=== PATIENT | male | born 1985 | race Two or more races ===

== ENCOUNTER 2016-03-30 19:49 | Emergency (ER) | payer OTHER ==
[2016-03-30 20:05] VITALS: BP 144/92; PULSE 66; TEMP 97.9; BMI 40.6
--- NOTE | 2016-03-30 21:07 | PDOC ---
History of Present Illness - General Chief Complaint: Lightheaded Stated Complaint: LIGHTHEADED/VOMITING/HEADACHE Time Seen by Provider: 03/30/16 20:30 History Source: Patient Exam Limitations: No Limitations - History of Present Illness Initial Comments: 03/30/16 21:01 30-year-old male, with no significant medical history, here with complaints of dizziness and mild chest pain of sudden onset for the past month. Patient states that symptoms come and go and is relieved when he vomits. No previous episodes. He denies any shortness of breath, no fever, no chills, no dypsnea, no, dysphagia, no headache, no blurry vision, no hemoptysis, no bloody sputum, no LOC. Presenting Symptoms: Dizziness, Nausea, Vomiting Timing/Duration: reports: intermittent Severity/Quality: reports: moderate, severe Location: reports: substernal Chest Pain Radiation: reports: arms Activities at Onset: reports: none, no specific activity Prior Chest Pain/Cardiac Workup: denies: No prior chest pain, No prior cardiac workup, Non-cardiac, Angina, Cardiac Cath, Cardiolye Scan, Echocardiography, Heart Attack, Pulmonary Embolism, Stress Test, Thallium Scan, Other Modifying Factors: worse with: antacids, breathing, coughing, defecating, eating , exercise, lying down, morphine, movement, nitroglycerin, oxygen, palpation, rest, other Nitro Today/Relief: No: no nitro taken today, 0.4 mg x 1, 0.4 mg x 2, 0.4 mg x 3 , 0.4 mg x 4, provided by EMS, provided by ED, provided at home, no relief, mild relief, complete relief Aspirin Received prior to arrival (Core Measure): No: no aspirin today, unknown , 81 mg x 1, 81 mg x 2, 81 mg x 3, 81 mg x 4, 325 mg x 1, provided at home, provided by EMS, provided by ED Beta Denisse given by EMS (Core Measure): No Beta Denisse taken at Home (Core Measure): No Beta Denisse Contraindications (Core Measure): No: Not Prescribed, Allergy, Bradycardia (HR <60bpm), Advanced Heart Block, Pacemaker, Other Beta Denisse indicated at this time? (Core Measure): No Associated Symptoms: No: Denies symptoms, Abdominal pain, Back Pain, Cough, Chest Pain/pressure, Diaphoresis, Dizziness, Edema, Fatigue, Fever/chills, Headache, Heartburn, Loss of Appetite, Nausea, Palpitations, Rash, Shortness of Breath, Swelling/lump in chest, Syncope, Vomiting, Weakness Past History - Past Medical History Allergies/Adverse Reactions: Allergies Allergy/AdvReac Type Severity Reaction Status Date / Time No Known Allergies Allergy Verified 03/30/16 20:01 Home Medications: Ambulatory Orders Levofloxacin [Levaquin -] 500 mg PO DAILY #7 tablet 03/30/16 Meclizine HCl [Antivert -] 25 mg PO DAILY #7 tablet 03/30/16 Other medical history: denies - Psycho/Social/Smoking Cessation Hx Anxiety: No Suicidal Ideation: No Smoking History: Never smoked Number of Cigarettes Smoked Daily: 0 Information on smoking cessation initiated: No Hx Alcohol Use: No Drug/Substance Use Hx: No Substance Use Type: None *Physical Exam - Vital Signs Last Vital Signs Temp Pulse Resp BP Pulse Ox 97.9 F 66 14 144/92 100 03/30/16 20:01 03/30/16 20:01 03/30/16 20:03/30/16 20:03/30/16 20:16 - Physical Exam General Appearance: Yes: Nourished, Appropriately Dressed. No: Apparent Distress, Disheveled, Mild Distress, Moderate Distress, Severe Distress, Alcohol on Breath, Intoxicated HEENT: positive: EOMI, JOSEPHINE, Normal ENT Inspection, Normal Voice, TMs Normal, Pharynx Normal. negative: Pale Conjunctivae, Photophobia, Scleral Icterus (R), Scleral Icterus (L), Muffled/Hoarse voice, Tonsillar Exudate, Tonsillar Erythema , Nasal Congestion, Rhinorrhea, Sinus Tenderness, Orbits, Hearing Decreased, Hearing Grossly Normal, TM Bulging, TM Dull, TM Erythema, Lesions, Moraes, Excessive drooling, Thrush Neck: positive: Trachea midline, Normal Thyroid, Supple. negative: Carotid bruit, Decreased range of motion, Stridor, Lymphadenopathy (R), Lymphadenopathy (L), Rigidity, Tender lateral, Tender midline, Thyromegaly Respiratory/Chest: positive: Lungs Clear, Normal Breath Sounds, Respiratory Distress. negative: Chest Tender, Accessory Muscle Use, Labored Respiration, Rapid RR, Decreased Breath Sounds, Paradoxal Breathing, Crackles, Rales, Rhonchi , Stridor, Wheezing, Hyperresonant, Plerual Rub Cardiovascular: positive: Regular Rhythm, Regular Rate, S1, S2 Musculoskeletal: positive: Normal Inspection, CVA Tenderness. negative: CVA Tenderness (R), CVA Tenderness (L), Decreased Range of Motion, Muscle Spasm, Vertebral Tenderness Extremity: positive: Normal Capillary Refill, Normal Inspection, Normal Range of Motion, Pelvis Stable. negative: Tender Integumentary: positive: Normal Color, Dry, Warm Neurologic: positive: egg candler II-XII NML intact, Fully Oriented, Alert, Normal Mood/ Affect, Normal Response, Motor Strength 08/01 ED Treatment Course - LABORATORY CBC & Chemistry Diagram: 03/30/16 21:00 03/30/16 21:00 - ADDITIONAL ORDERS Additional order review: Laboratory Results 03/30/16 03/30/16 03/30/16 21:18 21:00 21:00 Sodium 139 Potassium 4.5 Chloride 104 Carbon Dioxide 27 Anion Gap 8 BUN 15 Creatinine 0.8 Creat Clearance w eGFR > 60 Random Glucose 95 Calcium 9.4 Total Bilirubin 0.3 AST 22 ALT 69 Alkaline Phosphatase 70 Creatine Kinase 98 Troponin I < 0.02 C-Reactive Protein < 0.3 Total Protein 7.5 Albumin 4.2 Lipase 113 TSH 2.00 Urine Color Ltyellow Urine Appearance Clear Urine pH 7.0 Ur Specific [place] 1.021 Urine Protein Negative Urine Glucose (UA) Negative Urine Ketones Negative Urine Blood Negative Urine Nitrite Negative Urine Bilirubin Negative Urine Urobilinogen Negative Ur Leukocyte Esterase Negative Opiates Screen Negative Methadone Screen Negative Barbiturate Screen Negative Phencyclidine Screen Negative Ur Amphetamines Screen Negative MDMA (Ecstasy) Screen Negative Benzodiazepines Screen Negative Cocaine Screen Negative U Marijuana (THC) Screen Negative 03/30/16 21:00 RBC 6.62 H MCV 74.2 L MCHC 31.7 L RDW 16.2 H MPV 10.0 Neutrophils % 74.6 Lymphocytes % 16.7 Monocytes % 6.1 Eosinophils % 1.9 Basophils % 0.7 - RADIOLOGY Radiology Studies Ordered: Category Date Time Status CHEST PA & LAT [RAD] Stat Radiology 03/30/16 21:06 Taken Progress Note - Progress Note Progress Note: Patient examined here in ER. Patient had labs done and show elevated WBC's, otherwise within acceptable limits. Patient had CXR done which shows early RLL infiltrate suggestive of early PNA. Medical Decision Making - Medical Decision Making 03/30/16 22:47 Patient with possible early PNA and dizziness probably secondary to sinusitis. Patient to be discharged home with oral ABx and follow up with PCP as needed. *DC/Admit/Observation/Transfer Diagnosis at time of Disposition: Dizziness Pneumonia Qualifiers: Pneumonia type: due to unspecified organism Laterality: right Lung location: lower lobe of lung Qualified Code(s): J18.9 - Pneumonia, unspecified organism Sinusitis Qualifiers: Sinusitis location: frontal Chronicity: unspecified Qualified Code(s): J32.1 - Chronic frontal sinusitis - Discharge Dispostion Disposition: HOME Condition at time of disposition: Stable Admit: No - Patient Instructions Printed Discharge Instructions: DI for Sinusitis, DI for Pneumonia -- Adult, DI for Dizziness-Nonvertigo
[2016-03-30 21:25] LABS: BASOPHIL 0.7 % (0-2.0); EOSINOPHIL 1.9 % (0-4.5); MCH 23.5 pg (25.7-33.7); MCHC 31.7 g/dl (32.0-35.9); MEAN CELL VOLUME 74.2 fl (80-96); NEUTROPHILS 74.6 % (42.8-82.8); PLATELET COUNT 197 K/MM3 (134-434); RDW 16.2 % (11.9-15.9); WHITE BLOOD COUNT 12.5 K/mm3 (4.0-10.0)
[2016-03-30 21:26] LABS: URINE APPEARANCE CLEAR; URINE BILIRUBIN NEGATIVE (NEGATIVE); URINE BLOOD NEGATIVE (NEGATIVE); URINE COLOR LTYELLOW; URINE GLUCOSE (UA) NEGATIVE (NEGATIVE); URINE KETONE NEGATIVE (NEGATIVE); URINE LEUK ESTERASE NEGATIVE (NEGATIVE); URINE NITRITE NEGATIVE (NEGATIVE); URINE PROTEIN NEGATIVE (NEGATIVE); URINE UROBILINOGEN NEGATIVE E.U./dl (0.2-1.0)
[2016-03-30 21:42] LABS: URINE MARIJUANA THC NEGATIVE ng/ml (CUTOFF=50)
[2016-03-30 21:51] LABS: ALBUMIN 4.2 g/dl (3.4-5.0); ANION GAP 8 (8-16); BILIRUBIN,TOTAL 0.3 mg/dL (0.2-1.0); CALCIUM 9.4 mg/dL (8.5-10.1); CO2 27 mmol/L (21-32); CREATININE 0.8 mg/dL (0.7-1.3); GLUCOSE,RANDOM 95 mg/dL (74-106); SGOT/AST 22 U/L (15-37); SGPT/ALT 69 U/L (12-78); TOT PROT 7.5 g/dl (6.4-8.2)
[2016-03-30 21:59] LABS: C-REACTIVE PROTEIN < 0.3 MG/DL (0.00-0.3)
[2016-03-30 22:00] LABS: ALK PHOS 70 U/L (45-117); TROPONIN I < 0.02 ng/ml (0.00-0.05)
[2016-03-30] MEDS ORDERED: MECLIZINE HCL 12.5 MG TABLET PO ONE (22:32)
[2016-03-30] MEDS ORDERED: KETOROLAC TROMETHAMINE 60 MG/2 ML VIAL IM ONE (22:41)
[2016-03-30] MEDS ORDERED: LEVOFLOXACIN 500 MG TABLET (FP) PO ONE (22:44)
[2016-03-30] MEDS ORDERED: KETOROLAC TROMETHAMINE 60 MG/2 ML VIAL ONE (22:46)
[2016-03-30] MEDS ORDERED: LEVOFLOXACIN 500 MG TABLET (FP) ONE (22:47)
[2016-03-30] MEDS ORDERED: MECLIZINE HCL 12.5 MG TABLET ONE (22:47)
--- NOTE | 2016-04-02 16:04 | EKG ---
Test Reason : Blood Pressure : / mmHG Vent. Rate : 075 BPM Atrial Rate : 075 BPM P-R Int : 158 ms QRS Dur : 086 ms QT Int : 392 ms P-R-T Axes : 045 019 044 degrees QTc Int : 437 ms NORMAL SINUS RHYTHM NONSPECIFIC ST ABNORMALITY ABNORMAL ECG NO PREVIOUS ECGS AVAILABLE Confirmed by SUBHASH MARI, POOJA ([id number]) on 04/02/2016 4:04:34 PM Referred By: Confirmed By:POOJA CULLEN MD
== END 2016-03-30 22:52 | disposition home or self-care (01) ==
LOC: JER 19:49
PROC: 3E0233Z Introduction of Anti-inflammatory into Muscle, Percutaneous Approach (ICD-10-PCS; principal; 2016-03-30)
DX: J18.9 Pneumonia, unspecified organism (principal); J32.1 Chronic frontal sinusitis
CPT/HCPCS: 36415; 71020-TC; 80053; 81003; 82550; 83690; 84443; 84484; 85025; 86140; 93005; 93010; 96372; 99283-25; G0479

== ENCOUNTER 2017-05-02 22:17 | Inpatient (IN) | payer OTHER ==
--- NOTE | 2017-05-02 23:49 | PDOC ---
History of Present Illness - General History Source: Patient Exam Limitations: No Limitations - History of Present Illness Initial Comments: 05/03/17 01:55 The patient is a 31 year old male with no significant past medical history who presents with one day of bilateral flank pain, discomfort on urination, and vomiting. The patient reports "feeling uncomfortable" with urination, but denies burning or hematuria. He reports experiencing this bilateral flank pain once in January and again in February, however, reportedly took Advil with resolution of the pain each time. The patient states the pain today is worse than the pain associated with the prior experiences. The patient reportedly vomited 2x since being in the ED today. He denies chest pain, shortness of breath, headache and dizziness. He denies fever, chills, nausea, diarrhea and constipation. He denies frequency, urgency and hematuria. <Almita London - Last Filed: 05/03/17 01:55> <Tammi Vidal - Last Filed: 05/03/17 21:39> - General Chief Complaint: Pain, Acute Stated Complaint: PAIN Time Seen by Provider: 05/02/17 23:43 Past History <Almita London - Last Filed: 05/03/17 01:55> - Suicide/Smoking/Psychosocial Hx Smoking History: Never smoked Number of Cigarettes Smoked Daily: 0 Hx Alcohol Use: No Drug/Substance Use Hx: No Substance Use Type: None <Tammi Vidal - Last Filed: 05/03/17 21:39> - Past Medical History Allergies/Adverse Reactions: Allergies Allergy/AdvReac Type Severity Reaction Status Date / Time No Known Allergies Allergy Verified 05/02/17 22:43 Home Medications: Ambulatory Orders NK [No Known Home Medication] 03/30/16 Review of Systems - Review of Systems Able to Perform ROS?: Yes Comments:: 05/03/17 01:59 CONSTITUTIONAL: Absent: fever, chills, diaphoresis, generalized weakness, malaise, loss of appetite HEENT: Absent: rhinorrhea, nasal congestion, throat pain, throat swelling, difficulty swallowing, mouth swelling, ear pain, eye pain, visual Changes CARDIOVASCULAR: Absent: chest pain, syncope, palpitations, irregular heart rate, lightheadedness , peripheral edema RESPIRATORY: Absent: cough, shortness of breath, dyspnea with exertion, orthopnea, wheezing, stridor, hemoptysis GASTROINTESTINAL: Absent: abdominal pain, abdominal distension, nausea, vomiting, diarrhea, constipation, melena, hematochezia GENITOURINARY: (+) bilateral flank pain and "discomfort" on urination. Absent: frequency, urgency, hesitancy, hematuria, flank pain, genital pain MUSCULOSKELETAL: Absent: myalgia, arthralgia, joint swelling SKIN: Absent: rash, itching, pallor HEMATOLOGIC/IMMUNOLOGIC: Absent: easy bleeding, easy bruising, lymphadenopathy, frequent infections ENDOCRINE: Absent: unexplained weight gain, unexplained weight loss, heat intolerance, cold intolerance NEUROLOGIC: Absent: headache, focal weakness or paresthesias, dizziness, unsteady gait, seizure, mental status changes, bladder or bowel incontinence PSYCHIATRIC: Absent: anxiety, depression, suicidal or homicidal ideation, hallucinations. <Almita London - Last Filed: 05/03/17 01:55> *Physical Exam - Vital Signs Last Vital Signs Temp Pulse Resp BP Pulse Ox 98.9 F 61 18 156/97 99 05/02/17 22:39 05/03/17 00:14 05/03/17 00:14 05/03/17 00:14 05/02/17 22:39 - Physical Exam Comments: 05/03/17 02:00 GENERAL: Well developed, well nourished. Awake and alert. No acute distress. HEENT: Normocephalic, atraumatic. PERRLA, EOMI. No conjunctival pallor. Sclera are non- icteric. Moist mucous membranes. Oropharynx is clear. NECK: Supple. Full ROM. No JVD. Carotid pulses 2+ and symmetric, without bruits. No thyromegaly. No lymphadenopathy. CARDIOVASCULAR: Regular rate and rhythm. No murmurs, rubs, or gallops. Distal pulses are 2+ and symmetric. PULMONARY: No evidence of respiratory distress. Lungs clear to auscultation bilaterally. No wheezing, rales or rhonchi. ABDOMINAL: Soft. Non-tender. Non-distended. No rebound or guarding. No organomegaly. Normoactive bowel sounds. MUSCULOSKELETAL (+) CVA on the left. No CVA tenderness on the right. Normal range of motion at all joints. No bony deformities or tenderness. EXTREMITIES: No cyanosis. No clubbing. No edema. No calf tenderness. SKIN: Warm and dry. Normal capillary refill. No rashes. No jaundice. NEUROLOGICAL: Alert, awake, appropriate. Cranial nerves 2-12 intact. Normoreflexic in the upper and lower extremities. Normal speech. Toes are down-going bilaterally. Gait is normal without ataxia. PSYCHIATRIC: Cooperative. Good eye contact. Appropriate mood and affect. <Almita London - Last Filed: 05/03/17 01:55> - Vital Signs Last Vital Signs Temp Pulse Resp BP Pulse Ox 98.9 F 91 H 20 145/84 99 05/02/17 22:39 05/02/17 22:39 05/02/17 22:39 05/02/17 22:39 05/02/17 22:39 <Tammi Vidal - Last Filed: 05/03/17 21:39> ED Treatment Course - LABORATORY CBC & Chemistry Diagram: 05/03/17 00:51 05/03/17 00:51 - RADIOLOGY Radiograph Interpretation: EXAM: CT abdomen and pelvis without contrast HISTORY: Rule out stone COMPARISON: None. FINDINGS: Lung bases are clear. The visualized cardiac chambers are normal size and configuration. The liver is fatty. There is mild left hydronephrosis secondary to a 5 mm proximal to mid left ureteral stone. There is mild right hydronephrosis secondary to an 8 mm proximal right ureteral stone or 2 smaller adjacent stones. Additional small bilateral renal parenchymal stones are noted. Normal unenhanced gallbladder, pancreas, spleen, adrenal glands and kidneys. The stomach and abdominal small and large bowel are normal. There is no aortic aneurysm. There is no significant retroperitoneal lymphadenopathy. The pelvic small and large bowel are normal. There is no evidence of appendicitis. The urinary bladder and prostate gland are normal. No pelvic free fluid is identified. There is no significant pelvic lymphadenopathy. IMPRESSION: Mild left hydronephrosis secondary to a 5 mm proximal to mid left ureteral stone. Mild right hydronephrosis secondary to an 8 mm proximal right ureteral stone or 2 smaller adjacent stones. Additional small bilateral renal stones. Fatty liver. Matt Graves MD 05/03/2017 00:26 EST - Medications Given in the ED: ED Medications Discontinued Medications Generic Name Dose Route Start Last Admin Trade Name Freq PRN Reason Stop Dose Admin Ibuprofen 600 mg 05/02/17 23:50 05/03/17 00:15 Motrin - PO 05/02/17 23:51 600 mg ONCE ONE Administration <Almita London - Last Filed: 05/03/17 01:55> - LABORATORY CBC & Chemistry Diagram: 05/03/17 06:25 05/03/17 06:25 <Tammi Vidal - Last Filed: 05/03/17 21:39> Medical Decision Making - Medical Decision Making 05/03/17 21:39 Pt has bilat large obstructing stones. He will be admitted for eval, treatment and nephrology consult. <aTmmi Vidal - Last Filed: 05/03/17 21:39> *DC/Admit/Observation/Transfer - Attestations Scribe Attestion: 05/03/17 02:01 Documentation prepared by Almita London, acting as medical secretary receptionist for Tammi Vidal MD <Almita London - Last Filed: 05/03/17 01:55> - Discharge Dispostion Admit: Yes <Tammi Vidal - Last Filed: 05/03/17 21:39> Diagnosis at time of Disposition: Nephrolithiasis, Urinary tract obstruction by kidney stone - Discharge Dispostion Condition at time of disposition: Guarded
[2017-05-02] MEDS ORDERED: IBUPROFEN 600 MG TABLET (FP) PO ONE ×2 (23:50→23:52)
[2017-05-03] MEDS ORDERED: SODIUM CHLORIDE 0.9% 500 ML INFUS.BAG IV ONE (00:40)
[2017-05-03] MEDS ORDERED: morphine CARPU-JECT 2 MG/1 ML DISP.SYRIN IVPUSH ONE (00:40)
[2017-05-03] MEDS ORDERED: TAMSULOSIN HCL 0.4 MG CAP.ER.24H (FP) PO ONE (00:40)
[2017-05-03] MEDS ORDERED: MORPHINE SULFATE 10 MG/1 ML *VIAL ONE (00:43)
[2017-05-03] MEDS ORDERED: TAMSULOSIN HCL 0.4 MG CAP.ER.24H (FP) ONE (00:43)
[2017-05-03 01:01] LABS: BASO % 0.7 % (0-2.0); EOS % 1.2 % (0-4.5); HEMOGLOBIN 15.3 GM/dL (11.7-16.9); LYMPH % 16.3 % (8-40); MCH 23.9 pg (25.7-33.7); MCHC 31.9 g/dl (32.0-35.9); MEAN CELL VOLUME 74.9 fl (80-96); MEAN PLT VOLUME 10.1 fl (7.5-11.1); MONO % 6.6 % (3.8-10.2); NEUT % 75.2 % (42.8-82.8); PLATELET COUNT 209 K/MM3 (134-434); RBC 6.41 M/mm3 (4.00-5.60); RDW 16.8 % (11.9-15.9); WHITE BLOOD COUNT 14.9 K/mm3 (4.0-10.0)
[2017-05-03] MEDS ORDERED: ONDANSETRON 4 MG/2 ML VIAL IVPB ONE (01:20)
[2017-05-03] MEDS ORDERED: ONDANSETRON 4 MG/2 ML VIAL ONE (01:24)
[2017-05-03 01:42] LABS: ALBUMIN 4.1 g/dl (3.4-5.0); ALK PHOS 64 U/L (45-117); ANION GAP 9 (8-16); BILIRUBIN,TOTAL 0.3 mg/dL (0.2-1.0); BLOOD UREA NITROGEN 16 mg/dL (7-18); CALCIUM 9.3 mg/dL (8.5-10.1); CHLORIDE 106 mmol/L (98-107); CO2 26 mmol/L (21-32); CREATININE 0.9 mg/dL (0.7-1.3); GLUCOSE,RANDOM 110 mg/dL (74-106); POTASSIUM 4.2 mmol/L (3.5-5.1); SGOT/AST 29 U/L (15-37); SGPT/ALT 80 U/L (12-78); SODIUM 141 mmol/L (136-145); TOT PROT 7.8 g/dl (6.4-8.2)
--- NOTE | 2017-05-03 03:25 | HP ---
CHIEF COMPLAINT: discomfort w/ urination, BL flank pain PCP: Dr. Munroe HISTORY OF PRESENT ILLNESS: 31 yo man with no significant pmh who presents with one day of BL flank pain, discomfort w/ urination and N/V. Pt states that pain began yesterday, intermittent in lower back with no radiation, non-positional, only relieved by emesis. Pt also endorses urinary "discomfort" when he urinates, but denies hematuria, pyuria, pain, penile discharge or sediment. Pt states pain has become more constant today, causing him to become nauseous with multiple episodes of nonbloody, nonbilious emesis. Pt has never had kidney stones before , however father and brother with pmh of stones. Pt endorses one episode of scant, thick, yellow penile discharge one week ago before urination for which he saw his PMD, who prescribed him abx w/ full resolution. Pt with no hx of urologic conditions, UTIs or STIs. Pt with remote hx of one episode of back pain in Jan and Feb, relieved with advil. Pt denies any fevers/chills, cough, SOB, CP, abdominal pain, rashes, genital pain, recent penile discharge or lesions, diarrhea, constipation. No recent trauma or surgical procedures. Pt endorses significant meat intake with diet. ER course was notable for: (1)WBC 14.9 (2)CT abdomen/pelvis w/ BL hydronephrosis with R and L ureteral stones (3) Recent Travel: None PAST MEDICAL HISTORY: None PAST SURGICAL HISTORY: None Social History: Smoking: Denies Alcohol: Denies Drugs: Denies Family History: Father, brother with renal calculi Allergies No Known Allergies Allergy (Verified 05/02/17 22:43) HOME MEDICATIONS: Home Medications Medication Instructions Recorded NK [No Known Home Medication] 03/30/16 REVIEW OF SYSTEMS CONSTITUTIONAL: Absent: fever, chills, diaphoresis, generalized weakness, malaise, loss of appetite, weight change HEENT: Absent: rhinorrhea, nasal congestion, throat pain, throat swelling, difficulty swallowing, mouth swelling, ear pain, eye pain, visual changes CARDIOVASCULAR: Absent: chest pain, syncope, palpitations, irregular heart rate, lightheadedness , peripheral edema RESPIRATORY: Absent: cough, shortness of breath, dyspnea with exertion, orthopnea, wheezing, stridor, hemoptysis GASTROINTESTINAL: vomiting, Absent: abdominal pain, abdominal distension, nausea, diarrhea, constipation, melena, hematochezia GENITOURINARY: BL flank pain, dysuria Absent: frequency, urgency, hesitancy, hematuria, genital pain MUSCULOSKELETAL: Absent: myalgia, arthralgia, joint swelling, back pain, neck pain SKIN: Absent: rash, itching, pallor HEMATOLOGIC/IMMUNOLOGIC: Absent: easy bleeding, easy bruising, lymphadenopathy, frequent infections ENDOCRINE: Absent: unexplained weight gain, unexplained weight loss, heat intolerance, cold intolerance NEUROLOGIC: Absent: headache, focal weakness or paresthesias, dizziness, unsteady gait, seizure, mental status changes, bladder or bowel incontinence PSYCHIATRIC: Absent: anxiety, depression, suicidal or homicidal ideation, hallucinations. PHYSICAL EXAMINATION Vital Signs - 24 hr Intake & Output 04/30/17 05/01/17 05/02/17 05/03/17 23:59 23:59 23:59 23:59 Weight 111.13 kg 05/02/17 05/03/17 05/03/17 22:39 00:14 03:09 Temperature 98.9 F Pulse Rate 91 H Pulse Rate [ 61 Right Radial] Respiratory 20 18 Rate Blood Pressure 145/84 Blood Pressure 156/97 [Right Arm] O2 Sat by Pulse 99 99 Oximetry (%) GENERAL: Awake, alert, and fully oriented, in no acute distress. HEAD: Normal with no signs of trauma. EYES: Pupils equal, round and reactive to light, extraocular movements intact, sclera anicteric, conjunctiva clear. No lid lag. EARS, NOSE, THROAT: Ears normal, nares patent, oropharynx clear without exudates. Moist mucous membranes. NECK: Normal range of motion, supple without lymphadenopathy, JVD, or masses. LUNGS: Breath sounds equal, clear to auscultation bilaterally. No wheezes, and no crackles. No accessory muscle use. HEART: Regular rate and rhythm, normal S1 and S2 without murmur, rub or gallop. ABDOMEN: Soft, nontender, not distended, normoactive bowel sounds, no guarding, no rebound, no masses. No hepatomegaly or splenomegaly. MUSCULOSKELETAL: Normal range of motion at all joints. No bony deformities or tenderness. L CVA tenderness. UPPER EXTREMITIES: 2+ pulses, warm, well-perfused. No cyanosis. No clubbing. No peripheral edema. LOWER EXTREMITIES: 2+ pulses, warm, well-perfused. No calf tenderness. No peripheral edema. NEUROLOGICAL: Cranial nerves II-XII intact. Normal speech. Normal gait. PSYCHIATRIC: Cooperative. Good eye contact. Appropriate mood and affect. SKIN: Warm, dry, normal turgor, no rashes or lesions noted, normal capillary refill. Laboratory Results - last 24 hr CBC, BMP 05/03/17 00:51 05/03/17 00:51 05/03/17 05/03/17 00:51 00:51 WBC 14.9 H RBC 6.41 H Hgb 15.3 Hct 48.0 MCV 74.9 L MCH 23.9 L MCHC 31.9 L RDW 16.8 H Plt Count 209 MPV 10.1 Neutrophils % 75.2 Lymphocytes % 16.3 Monocytes % 6.6 Eosinophils % 1.2 Basophils % 0.7 Sodium 141 Potassium 4.2 Chloride 106 Carbon Dioxide 26 Anion Gap 9 BUN 16 Creatinine 0.9 Creat Clearance w eGFR > 60 Random Glucose 110 H Calcium 9.3 Total Bilirubin 0.3 AST 29 D ALT 80 H Alkaline Phosphatase 64 Total Protein 7.8 Albumin 4.1 No micro No EKG CT abdomen/pelvis 05/03 - IMPRESSION: Mild left hydronephrosis secondary to a 5 mm proximal to mid left ureteral stone. Mild right hydronephrosis secondary to an 8 mm proximal right ureteral stone or 2 smaller adjacent stones. Additional small bilateral renal stones. Fatty liver. ASSESSMENT/PLAN: 31 yo man with no significant pmh who presents with one day of BL flank pain, discomfort w/ urination and N/V. #BL Ureteral calculi - Urology consulted - IVFs - toradol, morphine for pain control - Zofran for N/V - Flomax - UA - Strain urine - CMP, CBC, Coags, type and screen, - NPO PPX Early Ambulation FEN NS 100cc/hr Daily BMPs NPO, regular diet after Plan discussed with attending, Dr. Jean Steiner, PGY1 Visit type - Emergency Visit Emergency Visit: Yes ED Registration Date: 05/03/17 Care time: The patient presented to the Emergency Department on the above date and was hospitalized for further evaluation of their emergent condition. - New Patient This patient is new to me today: Yes Date on this admission: 05/03/17 - Critical Care Critical Care patient: No
[2017-05-03] MEDS ORDERED: ONDANSETRON 4 MG/2 ML VIAL IVPUSH PRN (04:13)
[2017-05-03] MEDS ORDERED: KETOROLAC TROMETHAMINE 15 MG/ML VIAL IVPUSH PRN (04:13)
[2017-05-03] MEDS ORDERED: MORPHINE SULFATE 10 MG/1 ML *VIAL IVPUSH PRN (04:13)
[2017-05-03] MEDS ORDERED: SODIUM CHLORIDE 1,000 ML IV SCH ×2 (04:15→08:09)
--- NOTE | 2017-05-03 05:01 | PN ---
Teaching Attending Note Name of Resident: Jatin Steiner ATTENDING PHYSICIAN STATEMENT I saw and evaluated the patient. I reviewed the resident's note and discussed the case with the resident. I agree with the resident's findings and plan as documented. SUBJECTIVE: OBJECTIVE: ASSESSMENT AND PLAN: patient presented with bilateral flank pain assoicated with nausea, patient was noted to have bilateral kidney stones. patient family is positive for kidney stones plan pain management urology evaluation tamsulosin urine analysis of the stone
[2017-05-03 06:36] VITALS: BMI 40.1
[2017-05-03 07:55] LABS: URINE APPEARANCE CLEAR; URINE BILIRUBIN NEGATIVE (NEGATIVE); URINE BLOOD 2+ (NEGATIVE); URINE COLOR YELLOW; URINE GLUCOSE (UA) NEGATIVE (NEGATIVE); URINE KETONE NEGATIVE (NEGATIVE); URINE LEUK ESTERASE TRACE (NEGATIVE); URINE NITRITE NEGATIVE (NEGATIVE); URINE PROTEIN NEGATIVE (NEGATIVE); URINE UROBILINOGEN NEGATIVE mg/dL (0.2-1.0)
[2017-05-03 08:01] LABS: BASO % 0.6 % (0-2.0); EOS % 0.7 % (0-4.5); HEMATOCRIT 45.7 % (35.4-49); HEMOGLOBIN 14.3 GM/dL (11.7-16.9); LYMPH % 25.6 % (8-40); MCH 23.6 pg (25.7-33.7); MCHC 31.3 g/dl (32.0-35.9); MEAN CELL VOLUME 75.3 fl (80-96); MEAN PLT VOLUME 9.8 fl (7.5-11.1); MONO % 7.7 % (3.8-10.2); NEUT % 65.4 % (42.8-82.8); PLATELET COUNT 180 K/MM3 (134-434); RBC 6.07 M/mm3 (4.00-5.60); RDW 16.6 % (11.9-15.9); WHITE BLOOD COUNT 11.5 K/mm3 (4.0-10.0)
[2017-05-03 08:04] LABS: CHLORIDE 105 mmol/L (98-107); POTASSIUM 4.3 mmol/L (3.5-5.1); SODIUM 141 mmol/L (136-145)
[2017-05-03 08:06] LABS: INR 1.36 (0.82-1.09); PROTHROMBIN TIME (PATIENT) 15.4 SEC (9.98-11.88)
[2017-05-03] MEDS ORDERED: SODIUM CHLORIDE 1,000 ML IV STA (08:08)
[2017-05-03 08:09] LABS: ACTIVATED PTT 31.1 SECONDS (26.9-34.4)
[2017-05-03] MEDS ORDERED: ACETAMINOPHEN 325 MG TABLET (FP) PO PRN (08:10)
[2017-05-03 08:16] LABS: EPI CELLS RARE /HPF (FEW); URINE HYALINE CAST 4 /lpf; URINE MUCUS FEW
[2017-05-03 08:36] LABS: ALBUMIN 3.7 g/dl (3.4-5.0); ALK PHOS 59 U/L (45-117); ANION GAP 11 (8-16); BILIRUBIN,TOTAL 0.7 mg/dL (0.2-1.0); BLOOD UREA NITROGEN 15 mg/dL (7-18); CO2 25 mmol/L (21-32); CREATININE 0.8 mg/dL (0.7-1.3); GLUCOSE,RANDOM 101 mg/dL (74-106); SGOT/AST 23 U/L (15-37); SGPT/ALT 69 U/L (12-78)
[2017-05-03] MEDS: KETOROLAC TROMETHAMINE 15 MG/ML VIAL IVPUSH PRN ×2 (09:11→21:24)
[2017-05-03] MEDS ORDERED: FLU VACCINE QUAD 60 MCG/0.5 ML (MDV 17-18) IM ONE (10:00)
--- NOTE | 2017-05-03 12:21 | EKG ---
Test Reason : Blood Pressure : / mmHG Vent. Rate : 071 BPM Atrial Rate : 071 BPM P-R Int : 178 ms QRS Dur : 084 ms QT Int : 386 ms P-R-T Axes : 037 032 057 degrees QTc Int : 419 ms NORMAL SINUS RHYTHM POOR R WAVE PROGRESSION ABNORMAL ECG WHEN COMPARED WITH ECG OF 30-MAR-2016 20:58, NOTE ERROR IN LEAD V4, RECOMMEND REPEAT Confirmed by MOHIT MARI, YESSICA ([id number]) on 05/03/2017 12:21:27 PM Referred By: Confirmed By:YESSICA RUEDA MD
[2017-05-03] MEDS ORDERED: SODIUM CHLORIDE 0.45% 1,000 ML IV SCH ×2 (13:00)
--- NOTE | 2017-05-03 13:00 | PN ---
Teaching Attending Note Name of Resident: Pedro Fuller SUBJECTIVE: patient seen and examined, symptoms improved. reports no urination since AM, one episode of nausea earlier, no fevers, chills or dysuria. OBJECTIVE: Vital Signs Period Temp Pulse Resp BP Sys/Aguilar Pulse Ox Last 24 Hr 98 F-99.0 F 61-91 18-20 112-156/52-97 99-100 Intake & Output 04/30/17 05/01/17 05/02/17 05/03/17 23:59 23:59 23:59 23:59 Intake Total 200 Balance 200 Weight 245 lb 248 lb 9.6 oz general: sitting in bed no acute distress Abdomen: soft, obese, LLQ tenderness, no CVA tenderness, no voluntary or involuntary guarding or rigidity, no suprapubic fullness Extremities: no edema Chest: CTAB, no rales or wheezing Home Medication List Medication Instructions Recorded Confirmed Type NK [No Known Home Medication] 03/30/16 05/03/17 History Active Medications Generic Name Dose Route Start Last Admin Trade Name Freq PRN Reason Stop Dose Admin Acetaminophen 650 mg 05/03/17 08:10 Tylenol - PO Q4H PRN PAIN LEVEL 1-5 Sodium Chloride 1,000 mls @ 1,000 mls/hr 05/03/17 13:00 1/2 Normal Saline IV 05/03/17 13:59 ASDIR JLUIS Lactated Ringer's 1,000 ml in 1,000 mls @ 150 mls/hr 05/03/17 13:00 Lactated Ringers Solution IV ASDIR JLUIS Ketorolac Tromethamine 15 mg 05/03/17 08:10 05/03/17 09:11 Toradol Injection - IVPUSH 05/08/17 04:12 15 mg Q6H PRN Administration PAIN LEVEL 6-10 Morphine Sulfate 2 mg 05/03/17 08:10 Morphine Injection - IVPUSH Q4H PRN PAIN LEVEL 6-10 Ondansetron HCl 4 mg 05/03/17 04:13 05/03/17 09:22 Zofran Injection IVPUSH 4 mg Q6H PRN Administration NAUSEA Tamsulosin HCl 0.4 mg 05/03/17 22:00 Flomax - PO HS [facility] Laboratory Results - last 24 hr 05/03/17 05/03/17 05/03/17 00:51 00:51 06:25 WBC 14.9 H 11.5 H RBC 6.41 H 6.07 H Hgb 15.3 14.3 Hct 48.0 45.7 MCV 74.9 L 75.3 L MCH 23.9 L 23.6 L MCHC 31.9 L 31.3 L RDW 16.8 H 16.6 H Plt Count 209 180 MPV 10.1 9.8 Neutrophils % 75.2 65.4 Lymphocytes % 16.3 25.6 D Monocytes % 6.6 7.7 Eosinophils % 1.2 0.7 Basophils % 0.7 0.6 PT with INR INR PTT (Actin FS) Sodium 141 Potassium 4.2 Chloride 106 Carbon Dioxide 26 Anion Gap 9 BUN 16 Creatinine 0.9 Creat Clearance w eGFR > 60 Random Glucose 110 H Calcium 9.3 Total Bilirubin 0.3 AST 29 D ALT 80 H Alkaline Phosphatase 64 Total Protein 7.8 Albumin 4.1 Urine Color Urine Appearance Urine pH Ur Specific [place] Urine Protein Urine Glucose (UA) Urine Ketones Urine Blood Urine Nitrite Urine Bilirubin Urine Urobilinogen Ur Leukocyte Esterase Urine WBC (Auto) Urine RBC (Auto) Ur Epithelial Cells Hyaline Casts Urine Mucus Blood Type Antibody Screen 05/03/17 05/03/17 05/03/17 06:25 06:25 06:25 WBC RBC Hgb Hct MCV MCH MCHC RDW Plt Count MPV Neutrophils % Lymphocytes % Monocytes % Eosinophils % Basophils % PT with INR 15.40 H INR 1.36 H PTT (Actin FS) 31.1 Sodium 141 Potassium 4.3 Chloride 105 Carbon Dioxide 25 Anion Gap 11 BUN 15 Creatinine 0.8 Creat Clearance w eGFR > 60 Random Glucose 101 Calcium 9.0 Total Bilirubin 0.7 D AST 23 D ALT 69 Alkaline Phosphatase 59 Total Protein 7.0 Albumin 3.7 Urine Color Urine Appearance Urine pH Ur Specific [place] Urine Protein Urine Glucose (UA) Urine Ketones Urine Blood Urine Nitrite Urine Bilirubin Urine Urobilinogen Ur Leukocyte Esterase Urine WBC (Auto) Urine RBC (Auto) Ur Epithelial Cells Hyaline Casts Urine Mucus Blood Type A POSITIVE Antibody Screen Negative 05/03/17 05/03/17 06:45 09:20 WBC RBC Hgb Hct MCV MCH MCHC RDW Plt Count MPV Neutrophils % Lymphocytes % Monocytes % Eosinophils % Basophils % PT with INR INR PTT (Actin FS) Sodium Potassium Chloride Carbon Dioxide Anion Gap BUN Creatinine Creat Clearance w eGFR Random Glucose Calcium Total Bilirubin AST ALT Alkaline Phosphatase Total Protein Albumin Urine Color Yellow Urine Appearance Clear Urine pH 5.0 D Ur Specific [place] 1.020 Urine Protein Negative Urine Glucose (UA) Negative Urine Ketones Negative Urine Blood 2+ H Urine Nitrite Negative Urine Bilirubin Negative Urine Urobilinogen Negative Ur Leukocyte Esterase Trace Urine WBC (Auto) 24 Urine RBC (Auto) 42 Ur Epithelial Cells Rare Hyaline Casts 4 Urine Mucus Few Blood Type A POSITIVE Antibody Screen CT stone protocol noted ASSESSMENT AND PLAN: 31 yom with morbid obesity with obstructive uropathy -Obstructive uropathy with bilateral hydronephrosis with obstructing stones -Morbid obesity Plan: Increase IVF to 150 (no NS in the hospital). IVF bolus. Strain all urine. Await urology input. Pain control with toradol. Morphine only if no improvement with toradol. No fevers/chills. WBC improved. urinalysis noted. Hold off on antibiotics for now. DVTPPX with inhouse > 48 hours. dispo planning in 24-48 hours pending clinical improvement and urology input. Plan discussed with patient in detail, all questions answered.
[2017-05-03] MEDS: LACTATED RINGERS SOLUTION 1,000 ML/1,000 ML INFUS.BAG IV SCH ×2 (14:49→22:53)
[2017-05-03] MEDS: MORPHINE SULFATE 10 MG/1 ML *VIAL IVPUSH PRN (15:25)
[2017-05-03] MEDS ORDERED: PT OWN MED DRAWER 7, Y5N ONE (17:45)
[2017-05-03] MEDS ORDERED: TAMSULOSIN HCL 0.4 MG CAP.ER.24H (FP) PO SCH (22:00)
[2017-05-04] MEDS: LACTATED RINGERS SOLUTION 1,000 ML/1,000 ML INFUS.BAG IV SCH ×2 (05:41→14:10)
--- NOTE | 2017-05-04 05:55 | PN ---
Physical Exam: SUBJECTIVE: Patient seen and examined by me this AM - Mild back pain overnight, medicated x1 w/ good effect. NPO for possible procedure w/ urology today. - One episode of nonbloody emesis in AM yesterday. Intermitent nausea, well controlled with zofran. Denies any f/c, MEAD/dizziness, CP, ab pain, rashes, dysuria, hematuria, diarrhea, neuro symptoms. Slept well, good appetite OBJECTIVE: Vital Signs Intake & Output 05/01/17 05/02/17 05/03/17 05/04/17 23:59 23:59 23:59 23:59 Intake Total 1950 Balance 1950 Weight 111.13 kg 112.763 kg Period Temp Pulse Resp BP Sys/Aguilar Pulse Ox Last 24 Hr 97.9 F-98.0 F 72-90 18-20 112-138/52-79 100 GENERAL: Young man, Awake, alert, and fully oriented, in no acute distress. HEAD: Normal with no signs of trauma. EYES: Pupils equal, round and reactive to light, extraocular movements intact, sclera anicteric, conjunctiva clear. No lid lag. EARS, NOSE, THROAT: Ears normal, nares patent, oropharynx clear without exudates. Moist mucous membranes. NECK: Normal range of motion, supple without lymphadenopathy, JVD, or masses. LUNGS: Breath sounds equal, clear to auscultation bilaterally. No wheezes, and no crackles. No accessory muscle use. HEART: Regular rate and rhythm, normal S1 and S2 without murmur, rub or gallop. ABDOMEN: Soft, nontender, not distended, normoactive bowel sounds, no guarding, no rebound, no masses. No hepatomegaly or splenomegaly. MUSCULOSKELETAL: Normal range of motion at all joints. No bony deformities or tenderness. No CVA tenderness noted. UPPER EXTREMITIES: 2+ pulses, warm, well-perfused. No cyanosis. No clubbing. No peripheral edema. LOWER EXTREMITIES: 2+ pulses, warm, well-perfused. No calf tenderness. No peripheral edema. NEUROLOGICAL: Cranial nerves II-XII intact. Normal speech. Normal gait. PSYCHIATRIC: Pleasant. Good eye contact. Appropriate mood and affect. SKIN: Warm, dry, normal turgor, no rashes or lesions noted, normal capillary refill. Laboratory Results - last 24 hr CBC, BMP 05/04/17 05:56 05/04/17 05:56 05/03/17 06:25 05/03/17 06:25 05/03/17 05/03/17 05/03/17 06:25 06:25 06:25 WBC 11.5 H RBC 6.07 H Hgb 14.3 Hct 45.7 MCV 75.3 L MCH 23.6 L MCHC 31.3 L RDW 16.6 H Plt Count 180 MPV 9.8 Neutrophils % 65.4 Lymphocytes % 25.6 D Monocytes % 7.7 Eosinophils % 0.7 Basophils % 0.6 PT with INR 15.40 H INR 1.36 H PTT (Actin FS) 31.1 Sodium 141 Potassium 4.3 Chloride 105 Carbon Dioxide 25 Anion Gap 11 BUN 15 Creatinine 0.8 Creat Clearance w eGFR > 60 Random Glucose 101 Calcium 9.0 Total Bilirubin 0.7 D AST 23 D ALT 69 Alkaline Phosphatase 59 Total Protein 7.0 Albumin 3.7 Urine Color Urine Appearance Urine pH Ur Specific [place] Urine Protein Urine Glucose (UA) Urine Ketones Urine Blood Urine Nitrite Urine Bilirubin Urine Urobilinogen Ur Leukocyte Esterase Urine WBC (Auto) Urine RBC (Auto) Ur Epithelial Cells Hyaline Casts Urine Mucus Blood Type Antibody Screen 05/03/17 05/03/17 05/03/17 06:25 06:45 09:20 WBC RBC Hgb Hct MCV MCH MCHC RDW Plt Count MPV Neutrophils % Lymphocytes % Monocytes % Eosinophils % Basophils % PT with INR INR PTT (Actin FS) Sodium Potassium Chloride Carbon Dioxide Anion Gap BUN Creatinine Creat Clearance w eGFR Random Glucose Calcium Total Bilirubin AST ALT Alkaline Phosphatase Total Protein Albumin Urine Color Yellow Urine Appearance Clear Urine pH 5.0 D Ur Specific [place] 1.020 Urine Protein Negative Urine Glucose (UA) Negative Urine Ketones Negative Urine Blood 2+ H Urine Nitrite Negative Urine Bilirubin Negative Urine Urobilinogen Negative Ur Leukocyte Esterase Trace Urine WBC (Auto) 24 Urine RBC (Auto) 42 Ur Epithelial Cells Rare Hyaline Casts 4 Urine Mucus Few Blood Type A POSITIVE A POSITIVE Antibody Screen Negative Active Medications Generic Name Dose Route Start Last Admin Trade Name Freq PRN Reason Stop Dose Admin Acetaminophen 650 mg 05/03/17 08:10 Tylenol - PO Q4H PRN PAIN LEVEL 1-5 Lactated Ringer's 1,000 ml in 1,000 mls @ 150 mls/hr 05/03/17 13:00 05/04/17 05:41 Lactated Ringers Solution IV 150 mls/hr ASDIR JLUIS Administration Ketorolac Tromethamine 15 mg 05/03/17 08:10 05/03/17 21:24 Toradol Injection - IVPUSH 05/08/17 04:12 15 mg Q6H PRN Administration PAIN LEVEL 6-10 Morphine Sulfate 2 mg 05/03/17 08:10 05/03/17 15:25 Morphine Injection - IVPUSH 2 mg Q4H PRN Administration PAIN LEVEL 6-10 Ondansetron HCl 4 mg 05/03/17 04:13 05/03/17 09:22 Zofran Injection IVPUSH 4 mg Q6H PRN Administration NAUSEA Tamsulosin HCl 0.4 mg 05/03/17 22:00 05/03/17 21:23 Flomax - PO 0.4 mg HS JLUIS Administration No micro No EKG CXR 05/03 - No acute pathology noted. CT abdomen/pelvis 05/03 - IMPRESSION: Mild left hydronephrosis secondary to a 5 mm proximal to mid left ureteral stone. Mild right hydronephrosis secondary to an 8 mm proximal right ureteral stone or 2 smaller adjacent stones. Additional small bilateral renal stones. Fatty liver. Renal U/S 05/03 - Impression: Likely small nonobstructing left renal stones measuring up to 4 mm and mild left renal hydronephrosis. Small echogenic foci are also present in the right kidney without posterior shadowing and without evidence of hydronephrosis. Cannot rule out small stones. ASSESSMENT/PLAN: 31 yo man with no significant pmh who presents with one day of BL flank pain, discomfort w/ urination and N/V. #BL Ureteral calculi - Not seen by originally consulted urologist over the weekend. Consult re-sent to Dr. Parker, who responded promptly and saw the pt on the same day; plan for cystoscopy/ureteroscopy/bilateral reterograde pyelogram today - IVFs increased to 150cc/hr - acetaminophen for pain, fever - Pain control (6-10) with toradol, morphine for breakthrough pain - Zofran for N/V - Flomax - UA - continue to strain urine - Daily CBC, BMP - NPO, regular diet after procedure PPX SCDs, possibly lovenox in post-op period FEN NS 150cc/hr Daily BMPs NPO, regular diet after procedures today Plan discussed with attending, Dr. Jonny Steiner, PGY1 Visit type - Emergency Visit Emergency Visit: Yes ED Registration Date: 05/03/17 Care time: The patient presented to the Emergency Department on the above date and was hospitalized for further evaluation of their emergent condition. - New Patient This patient is new to me today: No - Critical Care Critical Care patient: No
[2017-05-04 07:17] LABS: BASO % 0.7 % (0-2.0); EOS % 2.3 % (0-4.5); HEMATOCRIT 42.7 % (35.4-49); HEMOGLOBIN 13.7 GM/dL (11.7-16.9); LYMPH % 32.1 % (8-40); MCH 24.2 pg (25.7-33.7); MEAN CELL VOLUME 75.6 fl (80-96); MEAN PLT VOLUME 10.1 fl (7.5-11.1); MONO % 8.9 % (3.8-10.2); PLATELET COUNT 179 K/MM3 (134-434); RBC 5.65 M/mm3 (4.00-5.60); RDW 16.6 % (11.9-15.9); WHITE BLOOD COUNT 7.5 K/mm3 (4.0-10.0)
[2017-05-04 08:03] LABS: ANION GAP 8 (8-16); BLOOD UREA NITROGEN 14 mg/dL (7-18); CALCIUM 8.4 mg/dL (8.5-10.1); CHLORIDE 105 mmol/L (98-107); CO2 27 mmol/L (21-32); CREATININE 0.7 mg/dL (0.7-1.3); GLUCOSE,RANDOM 96 mg/dL (74-106); POTASSIUM 4.2 mmol/L (3.5-5.1); SODIUM 140 mmol/L (136-145)
[2017-05-04] MEDS: KETOROLAC TROMETHAMINE 15 MG/ML VIAL IVPUSH PRN (11:00)
[2017-05-04] MEDS: MORPHINE SULFATE 10 MG/1 ML *VIAL IVPUSH PRN (14:02)
--- NOTE | 2017-05-04 17:22 | PN ---
Teaching Attending Note Name of Resident: Jatin Steiner ATTENDING PHYSICIAN STATEMENT Time of evaluation: 10:45 AM I saw and evaluated the patient. I reviewed the resident's note and discussed the case with the resident. I agree with the resident's findings and plan as documented. SUBJECTIVE: Patient seen and examined, pain improved, no nausea, vomiting or new urinary symptoms. OBJECTIVE: Vital Signs Period Temp Pulse Resp BP Sys/Aguilar Pulse Ox Last 24 Hr 97.8 F-98.6 F 68-88 18-20 125-143/74-81 100-100 Intake & Output 05/01/17 05/02/17 05/03/17 05/04/17 23:59 23:59 23:59 23:59 Intake Total 1950 1800 Balance 1950 1800 Weight 245 lb 248 lb 9.6 oz general: sitting in chair, no acute distress Abdomen: soft, no suprapubic or LLQ tenderness, Left CVA tenderness present, neg for Right CVA tenderness Home Medication List Medication Instructions Recorded Confirmed Type NK [No Known Home Medication] 03/30/16 05/03/17 History Active Medications Generic Name Dose Route Start Last Admin Trade Name Freq PRN Reason Stop Dose Admin Acetaminophen 650 mg 05/03/17 08:10 Tylenol - PO Q4H PRN PAIN LEVEL 1-5 Lactated Ringer's 1,000 ml in 1,000 mls @ 150 mls/hr 05/03/17 13:00 05/04/17 14:10 Lactated Ringers Solution IV 150 mls/hr ASDIR JLUIS Administration Ketorolac Tromethamine 15 mg 05/03/17 08:10 05/04/17 11:00 Toradol Injection - IVPUSH 05/08/17 04:12 15 mg Q6H PRN Administration PAIN LEVEL 6-10 Morphine Sulfate 2 mg 05/03/17 08:10 05/04/17 14:02 Morphine Injection - IVPUSH 2 mg Q4H PRN Administration PAIN LEVEL 6-10 Ondansetron HCl 4 mg 05/03/17 04:13 05/03/17 09:22 Zofran Injection IVPUSH 4 mg Q6H PRN Administration NAUSEA Tamsulosin HCl 0.4 mg 05/03/17 22:00 05/03/17 21:23 Flomax - PO 0.4 mg HS JLUIS Administration Laboratory Results - last 24 hr 05/04/17 05/04/17 05:56 05:56 WBC 7.5 D RBC 5.65 H Hgb 13.7 Hct 42.7 MCV 75.6 L MCH 24.2 L MCHC 32.0 RDW 16.6 H Plt Count 179 MPV 10.1 Neutrophils % 56.0 Lymphocytes % 32.1 D Monocytes % 8.9 Eosinophils % 2.3 D Basophils % 0.7 Sodium 140 Potassium 4.2 Chloride 105 Carbon Dioxide 27 Anion Gap 8 BUN 14 Creatinine 0.7 Random Glucose 96 Calcium 8.4 L renal ultrasound results reviewed ASSESSMENT AND PLAN: 31 yom with morbid obesity with obstructive uropathy -Obstructive uropathy with bilateral hydronephrosis with obstructing stones -Leucocytosis, suspect stress induced, no clinical evidence of UTI, resolved without antibiotics. -Morbid obesity Plan: Urology consulted with Dr. Campuzano, for cystoscopy/ureteroscopy/bilateral reterograde pyelogram today, will follow up. Continue aggressive hydration, pain control with tylenol/toradol and morphine only for severe pain. Strain all urine. Renal ultrasound noted. Increase IVF to 150 (no NS in the hospital). IVF bolus. Strain all urine. Await urology input. Pain control with toradol. Morphine only if no improvement with toradol. Trend WBC for now. DVTPPX ambulating well in house. Will place on lovenox starting tomorrow in case needs longer stay. dispo planning pending urology intervention and clinical course. Plan discussed with patient in detail, all questions answered.
--- NOTE | 2017-05-04 18:27 | CON.GU ---
Consult Consult Specialty:: urology Reason for Consultation:: bilateral ureteral stones - History of Present Illness Chief Complaint: patient presented with left colic History of Present Illness: Patient presented with left renal colic and found to have bilateral ureteral partially obstructing stones. Patient is now with increased bilateral colic. Treatment options discussed x25 minutes. Patient agrees to emergently go to the OR for bilateral stents to maintain renal function - History Source History Provided By: Patient - Alcohol/Substance Use Hx Alcohol Use: No - Smoking History Smoking history: Never smoked Aproximately how many cigarettes per day: 0 Home Medications - Allergies Allergies/Adverse Reactions: Allergies Allergy/AdvReac Type Severity Reaction Status Date / Time No Known Allergies Allergy Verified 05/02/17 22:43 - Home Medications Home Medications: Ambulatory Orders NK [No Known Home Medication] 03/30/16 Physical Exam- Vital Signs: Vital Signs Temperature 98.4 F 05/04/17 17:46 Pulse Rate 74 05/04/17 17:46 Respiratory Rate 18 05/04/17 17:46 Blood Pressure 126/77 05/04/17 17:46 O2 Sat by Pulse Oximetry (%) 100 05/04/17 09:00 Constitutional: Yes: Well Nourished, Anxious, Moderate Distress Eyes: Yes: WNL, Conjunctiva Clear, EOM Intact HENT: Yes: WNL, Atraumatic, Normocephalic Neck: Yes: WNL, Supple, Trachea Midline Cardiovascular: Yes: WNL, Regular Rate and Rhythm Respiratory: Yes: WNL Gastrointestinal: Yes: WNL, Soft, Hypoactive Bowel Sounds Renal/: Yes: CVA Tenderness - Left, CVA Tenderness - Right Kidneys: Yes: Flank Pain Left, FLank Pain Right Pelvis: Yes: Bladder Non Palpable Testicles: Yes: WNL Scrotum: Yes: WNL Penis: Yes: WNL Prostate Exam: Yes: WNL Labs: CBC, BMP 05/04/17 05:56 05/04/17 05:56 Imaging - Results Cat Scan: Report Reviewed (bilateral obstructing ureteral stones) Ultrasound: Report Reviewed Assessment/Plan imp bilateral renal and ureteral stones with obstruction plan patient emergently taken to the OR to avoid renal insult
[2017-05-04] MEDS ORDERED: PROPOFOL 20 ML ONE (18:51)
[2017-05-04] MEDS ORDERED: SUCCINYLCHOLINE CHLORIDE 200 MG/10 ML VIAL ONE (18:51)
[2017-05-04] MEDS ORDERED: MIDAZOLAM HCL 2 MG/2 ML SINGLE DOSE VIAL ONE (19:13)
--- NOTE | 2017-05-04 19:51 | OP ---
Operative Note - Note: Operative Date: 05/04/17 Pre-Operative Diagnosis: bilateral obstructing ureteral stones with hydroureteronephrosis Operation: cystoscopy/bilateral retrograde pyelogram/bilateral ureterscopy with laser lithotripsy and stone basketing/bilateral ureteral stent placement Findings: bilateral hydroureteronephrosis with 8 mm obstructing right stone and 4 mm obstructing left stone Post-Operative Diagnosis: Same as Pre-op Surgeon: Jarad Campuzano Anesthesia: General Drains & Tubes with Location: bilateral 6fr/24cm ureteral stents Operative Report Dictated: Yes
[2017-05-04] MEDS ORDERED: MORPHINE SULFATE 10 MG/1 ML *VIAL IVPUSH PRN (20:44)
[2017-05-04] MEDS ORDERED: ONDANSETRON 4 MG/2 ML VIAL IVPUSH PRN ×2 (20:44→20:56)
[2017-05-04] MEDS ORDERED: ACETAMINOPHEN 325 MG TABLET (FP) PO PRN (20:44)
[2017-05-04] MEDS ORDERED: LACTATED RINGERS SOLUTION 1,000 ML/1,000 ML INFUS.BAG IV SCH (20:44)
[2017-05-04] MEDS ORDERED: KETOROLAC TROMETHAMINE 15 MG/ML VIAL IVPUSH PRN (20:44)
[2017-05-04] MEDS ORDERED: oxyCODONE HCL 5 MG TABLET PO PRN (20:56)
[2017-05-04] MEDS ORDERED: LACTATED RINGERS SOLUTION 1,000 ML IV SCH (21:00)
[2017-05-04] MEDS ORDERED: TAMSULOSIN HCL 0.4 MG CAP.ER.24H (FP) PO SCH (22:00)
--- NOTE | 2017-05-05 06:30 | PN ---
Physical Exam: SUBJECTIVE: Patient seen and examined by me this AM - S/p BL stent placement. Pinkish urine overnight. Pt with good pain control, no pain meds given overnight. Complaining of mild back pain with urination. Denies f/c, MEAD, cough, SOB, CP, Ab pain, n/v. Possible D/c today pending clearance by urology. - Pt POD1; cystoscopy/bilateral retrograde pyelogram/bilateral ureterscopy with laser lithotripsy and stone basketing/bilateral ureteral stent placement OBJECTIVE: Vital Signs Intake & Output 05/02/17 05/03/17 05/04/17 05/05/17 23:59 23:59 23:59 23:59 Intake Total 1950 2900 Output Total 900 Balance 1950 2900 -900 Weight 111.13 kg 112.763 kg Period Temp Pulse Resp BP Sys/Aguilar Pulse Ox Last 24 Hr 20 F-99 F 68-92 14-27 122-157/75-86 94-100 GENERAL: Young man, Awake, alert, and fully oriented, in no acute distress. A& Ox3 HEAD: Normal with no signs of trauma. EYES: Pupils equal, round and reactive to light, extraocular movements intact, sclera anicteric, conjunctiva clear. No lid lag. EARS, NOSE, THROAT: Ears normal, nares patent, oropharynx clear without exudates. Moist mucous membranes. NECK: Normal range of motion, supple without lymphadenopathy, JVD, or masses. LUNGS: Breath sounds equal, clear to auscultation bilaterally. No wheezes, and no crackles. No accessory muscle use. HEART: Regular rate and rhythm, normal S1 and S2 without murmur, rub or gallop. ABDOMEN: Soft, nontender, not distended, normoactive bowel sounds, no guarding, no rebound, no masses. No hepatomegaly or splenomegaly. MUSCULOSKELETAL: Normal range of motion at all joints. No bony deformities or tenderness. No CVA tenderness noted. UPPER EXTREMITIES: 2+ pulses, warm, well-perfused. No cyanosis. No clubbing. No peripheral edema. LOWER EXTREMITIES: 2+ pulses, warm, well-perfused. No calf tenderness. No peripheral edema. NEUROLOGICAL: Cranial nerves II-XII intact. Normal speech. Normal gait. PSYCHIATRIC: Pleasant. Good eye contact. Appropriate mood and affect. SKIN: Warm, dry, normal turgor, no rashes or lesions noted, normal capillary refill. Laboratory Results - last 24 hr CBC, BMP CBC, BMP 05/05/17 06:45 05/05/17 06:45 05/04/17 05:56 05/04/17 05:56 05/04/17 05/04/17 05:56 05:56 WBC 7.5 D RBC 5.65 H Hgb 13.7 Hct 42.7 MCV 75.6 L MCH 24.2 L MCHC 32.0 RDW 16.6 H Plt Count 179 MPV 10.1 Neutrophils % 56.0 Lymphocytes % 32.1 D Monocytes % 8.9 Eosinophils % 2.3 D Basophils % 0.7 Sodium 140 Potassium 4.2 Chloride 105 Carbon Dioxide 27 Anion Gap 8 BUN 14 Creatinine 0.7 Random Glucose 96 Calcium 8.4 L Active Medications Generic Name Dose Route Start Last Admin Trade Name Freq PRN Reason Stop Dose Admin Acetaminophen 650 mg 05/04/17 20:44 Tylenol - PO Q4H PRN PAIN LEVEL 1-5 Fentanyl 50 mcg 05/04/17 20:56 Sublimaze Injection - IVPUSH [id number] PRN PAIN-PACU ORDER X 4 DOSES ONLY Lactated Ringer's 1,000 mls @ 75 mls/hr 05/04/17 21:00 05/04/17 23:11 Lactated Ringers Solution IV 75 mls/hr ASDIR JLUIS Administration Ketorolac Tromethamine 15 mg 05/04/17 20:44 Toradol Injection - IVPUSH 05/08/17 04:12 Q6H PRN PAIN LEVEL 6-10 Morphine Sulfate 2 mg 05/04/17 20:44 Morphine Injection - IVPUSH Q4H PRN PAIN LEVEL 6-10 Ondansetron HCl 4 mg 05/04/17 20:44 Zofran Injection IVPUSH Q6H PRN NAUSEA Ondansetron HCl 4 mg 05/04/17 20:56 Zofran Injection IVPUSH Q6H PRN NAUSEA AND/OR VOMITING Oxycodone HCl 10 mg 05/04/17 20:56 Roxicodone - PO 05/05/17 20:55 Q4H PRN PAIN LEVEL > 4 Tamsulosin HCl 0.4 mg 05/04/17 22:00 05/04/17 23:10 Flomax - PO 0.4 mg HS JLUIS Administration No micro No EKG CXR 05/03 - No acute pathology noted. CT abdomen/pelvis 05/03 - IMPRESSION: Mild left hydronephrosis secondary to a 5 mm proximal to mid left ureteral stone. Mild right hydronephrosis secondary to an 8 mm proximal right ureteral stone or 2 smaller adjacent stones. Additional small bilateral renal stones. Fatty liver. Renal U/S 05/03 - Impression: Likely small nonobstructing left renal stones measuring up to 4 mm and mild left renal hydronephrosis. Small echogenic foci are also present in the right kidney without posterior shadowing and without evidence of hydronephrosis. Cannot rule out small stones. ASSESSMENT/PLAN: 31 yo man with no significant pmh who presents with one day of BL flank pain, discomfort w/ urination and N/V. #BL Ureteral calculi - Not seen by originally consulted urologist over the weekend. Consult re-sent to Dr. Parker, who responded promptly and saw the pt on the same day; plan for cystoscopy/ureteroscopy/bilateral reterograde pyelogram today - IVFs increased to 150cc/hr - acetaminophen for pain, fever - Pain control (6-10) with toradol, morphine for breakthrough pain - Zofran for N/V - Flomax - UA - continue to strain urine - Daily CBC, BMP - NPO, regular diet after procedure PPX SCDs, possibly lovenox in post-op period FEN NS 150cc/hr Daily BMPs NPO, regular diet after procedures today Plan discussed with attending, Dr. Jonny Steiner, PGY1
[2017-05-05 07:50] LABS: ANION GAP 8 (8-16); BLOOD UREA NITROGEN 13 mg/dL (7-18); CALCIUM 9.8 mg/dL (8.5-10.1); CHLORIDE 102 mmol/L (98-107); CO2 29 mmol/L (21-32); CREATININE 0.8 mg/dL (0.7-1.3); GLUCOSE,RANDOM 109 mg/dL (74-106); POTASSIUM 4.5 mmol/L (3.5-5.1); SODIUM 139 mmol/L (136-145)
--- NOTE | 2017-05-05 07:50 | OP ---
DATE OF OPERATION: 05/04/2017 PREOPERATIVE DIAGNOSIS: Bilateral obstructing stones with hydroureteronephrosis. POSTOPERATIVE DIAGNOSIS: Bilateral obstructing stones with hydroureteronephrosis. PROCEDURE PERFORMED: Cystoscopy, bilateral retrograde pyelograms, bilateral ureteroscopy, bilateral ureteroscopic laser lithotripsy, left ureteral stone basketing, bilateral ureteral stent placement. SURGEON: Raquel Martini MD ANESTHESIA: General. INDICATIONS: The patient has a history of bilateral ureteral stones. The patient has an 8+ mm right obstructing proximal ureteral stone and a 4-mm left proximal obstructing ureteral stone. The patient is at a high level of danger for acute renal insufficiency or failure. The patient presented with left colic. The patient was taken to the operating room emergently to avoid destruction of his renal function and to improve his pain management. The patient's understands the risks and benefits of the procedure. DESCRIPTION OF PROCEDURE: The patient was brought to the operating room and placed in the supine position on the operating room table. General anesthesia and antibiotics were administered. The patient was then placed in the dorsal lithotomy position. He was prepped and draped in the usual sterile manner. A left retrograde pyelogram was performed, which showed a left pelvic obstructing ureteral stone with proximal grade 3/5 to 4/5 hydroureteronephrosis. At this point a wire was passed proximally into the collecting system. Ureteroscopy was performed and a 4+ mm stone was seen. It was decided to laser lithotripsy the stone. The stone was laser lithotripsied. All stone fragments were then basketed and sent for analysis. The basketing was done under ureteroscopic visualization. With this accomplished, a 6-[place] 24-cm left ureteral stent was placed utilizing the Seldinger technique. Once the stent was in place, the right side was focused on. A retrograde pyelogram showed a proximal 8-mm obstructing ureteral stone. A wire was passed proximally into the kidney. At this point ureteroscopy was performed. A large stone measuring greater than 8 mm was noted. Laser lithotripsy of this stone was performed. However, the fragments migrated into the lower pole renal radha. The stone had fragmented into 2 to 3-mm fragments. Four fragments were noted. At this point it was decided to leave the patient with the ureteral stents. The ureteroscope was removed and a 6-[place] 24-cm right ureteral stent was placed utilizing the Seldinger technique. The patient tolerated the procedure very well. There were no complications. DISPOSITION: The patient was sent to the recovery room. RAQUEL MARTINI M.D. [id number]
[2017-05-05 08:09] LABS: HEMATOCRIT 46.8 % (35.4-49); HEMOGLOBIN 14.9 GM/dL (11.7-16.9); INR 1.44 (0.82-1.09); MCHC 31.8 g/dl (32.0-35.9); MEAN CELL VOLUME 75.4 fl (80-96); MEAN PLT VOLUME 9.9 fl (7.5-11.1); PLATELET COUNT 193 K/MM3 (134-434); PROTHROMBIN TIME (PATIENT) 16.3 SEC (9.98-11.88); RBC 6.21 M/mm3 (4.00-5.60); RDW 16.8 % (11.9-15.9); WHITE BLOOD COUNT 9.9 K/mm3 (4.0-10.0)
--- NOTE | 2017-05-05 09:46 | PN ---
Progress Note (short form) - Note Progress Note: Post op day#1.S/p Laser lithotripsy under [place] uneventful.Patient stable.No any anesthesia related problem.Patient DC from the anesthesia care.
--- NOTE | 2017-05-05 14:03 | PN ---
Teaching Attending Note Name of Resident: Jatin Steiner ATTENDING PHYSICIAN STATEMENT I saw and evaluated the patient. I reviewed the resident's note and discussed the case with the resident. I agree with the resident's findings and plan as documented. SUBJECTIVE:some dysuria with some hematuria but improved since yesterday. denies Cp, SOB, fever, chills, N/V/C/D OBJECTIVE: Last Vital Signs Temp Pulse Resp BP Pulse Ox 98.2 F 93 H 18 123/71 96 05/05/17 09:00 05/05/17 09:00 05/05/17 09:00 05/05/17 09:00 05/04/17 22:00 General NAD CV S1 S2 RRR no murmur/rub/gallop Lungs CTA B/L no wheezing/rales/rhonchi Abdomen soft NT/ND no rebound or guarding. no cva tenderness ASSESSMENT AND PLAN: 31yo M with no PMH presented with flank pain and found to have multiple obstructing nephrolithasis 1. Obstructing nephrolithasis with L hydronephrosis- S/p cystoscopy/bilateral retrograde pyelogram/bilateral ureterscopy with laser lithotripsy and stone basketing/bilateral ureteral stent placement 2. with improvement. will d/c on levaquin x 7 days. encouraged to increase water intake. dietary adjustment. stressed importance of urology follow up for stone identification as pt has strong family hx of kidney stones (father and brother) unknown etiology 2. D/c home. counselled with present. all questions answered. verbalized understanding and agreement iwth plan
--- NOTE | 2017-05-05 14:23 | DS ---
Physical Exam: SUBJECTIVE: Patient seen and examined by me this AM - S/p BL stent placement. Pinkish urine overnight. Pt with good pain control, no pain meds given overnight. Complaining of mild back pain with urination. Denies f/c, MEAD, cough, SOB, CP, Ab pain, n/v. Possible D/c today pending clearance by urology. - Pt POD1; cystoscopy/bilateral retrograde pyelogram/bilateral ureterscopy with laser lithotripsy and stone basketing/bilateral ureteral stent placement OBJECTIVE: Vital Signs Intake & Output 05/02/17 05/03/17 05/04/17 05/05/17 23:59 23:59 23:59 23:59 Intake Total 1950 2900 1400 Output Total 2700 Balance 1950 2900 -1300 Weight 111.13 kg 112.763 kg Period Temp Pulse Resp BP Sys/Aguilar Pulse Ox Last 24 Hr 20 F-99 F 74-93 14-27 122-157/71-86 94-98 PHYSICAL EXAM GENERAL: Young man, Awake, alert, and fully oriented, in no acute distress. A& Ox3 HEAD: Normal with no signs of trauma. EYES: Pupils equal, round and reactive to light, extraocular movements intact, sclera anicteric, conjunctiva clear. No lid lag. EARS, NOSE, THROAT: Ears normal, nares patent, oropharynx clear without exudates. Moist mucous membranes. NECK: Normal range of motion, supple without lymphadenopathy, JVD, or masses. LUNGS: Breath sounds equal, clear to auscultation bilaterally. No wheezes, and no crackles. No accessory muscle use. HEART: Regular rate and rhythm, normal S1 and S2 without murmur, rub or gallop. ABDOMEN: Soft, nontender, not distended, normoactive bowel sounds, no guarding, no rebound, no masses. No hepatomegaly or splenomegaly. MUSCULOSKELETAL: Normal range of motion at all joints. No bony deformities or tenderness. No CVA tenderness noted. UPPER EXTREMITIES: 2+ pulses, warm, well-perfused. No cyanosis. No clubbing. No peripheral edema. LOWER EXTREMITIES: 2+ pulses, warm, well-perfused. No calf tenderness. No peripheral edema. NEUROLOGICAL: Cranial nerves II-XII intact. Normal speech. Normal gait. PSYCHIATRIC: Pleasant. Good eye contact. Appropriate mood and affect. SKIN: Warm, dry, normal turgor, no rashes or lesions noted, normal capillary refill. LABS Laboratory Results - last 24 hr CBC, BMP 05/05/17 06:45 05/05/17 06:45 05/05/17 05/05/17 05/05/17 06:45 06:45 06:45 WBC 9.9 D RBC 6.21 H Hgb 14.9 Hct 46.8 MCV 75.4 L MCH 24.0 L MCHC 31.8 L RDW 16.8 H Plt Count 193 MPV 9.9 PT with INR 16.30 H INR 1.44 H Sodium 139 Potassium 4.5 Chloride 102 Carbon Dioxide 29 Anion Gap 8 BUN 13 Creatinine 0.8 Random Glucose 109 H Calcium 9.8 No micro No EKG CXR 05/03 - No acute pathology noted. CT abdomen/pelvis 05/03 - IMPRESSION: Mild left hydronephrosis secondary to a 5 mm proximal to mid left ureteral stone. Mild right hydronephrosis secondary to an 8 mm proximal right ureteral stone or 2 smaller adjacent stones. Additional small bilateral renal stones. Fatty liver. Renal U/S 05/03 - Impression: Likely small nonobstructing left renal stones measuring up to 4 mm and mild left renal hydronephrosis. Small echogenic foci are also present in the right kidney without posterior shadowing and without evidence of hydronephrosis. Cannot rule out small stones. Consults: Urology - Seen by Dr. Campuzano [facility] COURSE: Pre-hospital course: 31 yo man with no significant pmh who presents with one day of BL flank pain, discomfort w/ urination and N/V. Pt states that pain began yesterday, intermittent in lower back with no radiation, non-positional, only relieved by emesis. Pt also endorses urinary "discomfort" when he urinates, but denies hematuria, pyuria, pain, penile discharge or sediment. Pt states pain has become more constant today, causing him to become nauseous with multiple episodes of nonbloody, nonbilious emesis. Pt has never had kidney stones before , however father and brother with pmh of stones. Pt endorses one episode of scant, thick, yellow penile discharge one week ago before urination for which he saw his PMD, who prescribed him abx w/ full resolution. Pt with no hx of urologic conditions, UTIs or STIs. Pt with remote hx of one episode of back pain in Jan and Feb, relieved with advil. Pt denies any fevers/chills, cough, SOB, CP, abdominal pain, rashes, genital pain, recent penile discharge or lesions, diarrhea, constipation. No recent trauma or surgical procedures. Pt endorses significant meat intake with diet. Course since admission: In ED, labs notable for WBC 14.9, ALT 80. UA notable for 2+ blood. Vitals normal. CT abdomen/pelvis 05/03 w/ mild left hydronephrosis and 5mm left ureteral stent and mild R hydronephrosis w/ 8mm proximal r ureteral stone, with BL residual stones and fatty liver. Renal U/S 05/03 also notable for L renal stone 4mm and mild hydro. Pt endorse mild CVA tenderness BL, dysuria and n/v secondary to pain before admission. Pt better controlled on admission with tylenol/toradol. Pt started on aggressive IVFs, started on flomax 0.4mg daily, with zofran for N/V. Urology consulted. Pt WBC normalized to 7.5 on 05/03, no infectious symptoms noted. Pt only w/ mild back pain and dysuria throughout admission. Pt seen by Dr. Campuzano on 05/04, taken for BL cystoscopy/bilateral retrograde pyelogram/bilateral ureterscopy with laser lithotripsy and stone basketing/bilateral ureteral stent placement. Tolerated procedure well, noting improvement in back pain, but reporting hematuria and mild dysuria post-op. Pt stable with good pain control, PO tolerance on 05/05. Cleared for discharge by urology with immediate follow-up in clinic on day of discharge for further post- op management. Discharged on 7 day course of levaquin 500mg PO. Date of Admission:05/03/17 Date of Discharge: 05/05/17 Patient medically stable and cleared for discharge with outpt f/u with Dr. Randall Kelley immediately upon discharge for post-op management of Bl ureteral stents. Minutes to complete discharge: 35 Discharge Summary Reason For Visit: CALCULUS OF KIDNEY, URINARY TRACT OBSTRUCTION DUE Current Active Problems Bilateral hydronephrosis (Acute) Nephrolithiasis (Acute) Urinary tract obstruction by kidney stone (Acute) Condition: Good - Instructions Diet, Activity, Other Instructions: During your stay you were treated for kidney stones in both ureters, which were removed surgically by Dr. Campuzano. He also placed ureteral stents in your ureters on both sides to improve the flow of urine from your kidneys to your bladder temporarily. Medications: The following medications were added to your regimen. Please take them as described below: Levaquin 500mg, one pill by mouth, once a day, for one week (05/05 - 05/11) You no longer require the flomax medication, per Dr. Campuzano's recommendations. You may take Tylenol 325mg, every four hours, if you experience persistent pain in your back or with urination. Please continue taking all other home medication as previously prescribed. Follow-ups: Please schedule an appointment to see your primary care physician in one week for further management of your outpatient medication regimen. Please visit Dr. Campuzano in clinic today, immediately following your discharge for further management of your post-op care. His contact information has been provided in this packet. He will also determine if you require further evaluation for the causes of your kidney stones. Activity: There are certain dietary modifications you can make to help prevent kidney stones in the future. A guideline for approved diet to help prevent kidney stones has been provided in this discharge packet. Please abide by these recommendation. Increase the amount of water you drink daily. You should have at least 8 x (8 ounce) glasses daily Please return to the hospital if you experience any of the following symptoms: - Persistent or worsening back, lower abdominal or groin pain - Inability to urinate - Significantly increased blood in your urine - New fevers, chills - Any new or concerning symptoms Referrals: Jarad Campuzano MD [Staff Physician] - (Walk-in appointment at office immediately upon discharge) Gavin Mendez MD [Primary Care Provider] - 1 Week Disposition: HOME - Home Medications Comprehensive Discharge Medication List: Ambulatory Orders Levofloxacin [Levaquin -] 500 mg PO DAILY #7 tablet 05/05/17 Problem List - Problems (1) Bilateral hydronephrosis Code(s): N13.30 - UNSPECIFIED HYDRONEPHROSIS (2) Nephrolithiasis Code(s): N20.0 - CALCULUS OF KIDNEY (3) Urinary tract obstruction by kidney stone Code(s): N20.0 - CALCULUS OF KIDNEY; N13.8 - OTHER OBSTRUCTIVE AND REFLUX UROPATHY This patient is new to me today: No Emergency Visit: Yes ED Registration Date: 05/03/17 Care time: The patient presented to the Emergency Department on the above date and was hospitalized for further evaluation of their emergent condition. Critical Care patient: No - Discharge Referral Referred to [facility] No
[2017-05-05 14:39] VITALS: BP 131/88; PULSE 95; TEMP 98.4
== END 2017-05-05 15:01 | disposition home or self-care (01) | DRG 446 ==
LOC: JER 22:17 → JERBED 05-03 02:40 → J7W 05-03 04:27
PROVIDERS: ADMIT Internal Medicine; ATTEND Internal Medicine
PROC: BT14YZZ Fluoroscopy of Kidneys, Ureters and Bladder using Other Contrast (ICD-10-PCS; 2017-05-04)
PROC: 0TC78ZZ Extirpation of Matter from Left Ureter, Via Natural or Artificial Opening Endoscopic (ICD-10-PCS; principal; 2017-05-04 15:00)
PROC: 0TF68ZZ Fragmentation in Right Ureter, Via Natural or Artificial Opening Endoscopic (ICD-10-PCS; 2017-05-04 15:00)
PROC: 0T788DZ Dilation of Bilateral Ureters with Intraluminal Device, Via Natural or Artificial Opening Endoscopic (ICD-10-PCS; 2017-05-04 15:00)
DX: N13.2 Hydronephrosis with renal and ureteral calculous obstruction (principal); E66.01 Morbid (severe) obesity due to excess calories; K76.0 Fatty (change of) liver, not elsewhere classified; Z68.41 Body mass index [BMI] 40.0-44.9, adult; D72.828 Other elevated white blood cell count; N13.9 Obstructive and reflux uropathy, unspecified
CPT/HCPCS: 36415; 71045-TC; 74176; 76000-TC-FY; 76775-TC; 80048; 80053; 81003; 81015; 85025; 85027; 85610; 85730; 86850; 86900; 86901; 87086; 90688; 93005; 93010; 94760; 99284-25

== ENCOUNTER 2017-06-08 14:17 | Day surgery (SDC) | payer OTHER ==
[2017-06-04 12:57] VITALS: BMI 39.6
[2017-06-08 14:38] VITALS: TEMP 97.5
[2017-06-08] MEDS ORDERED: MIDAZOLAM HCL 2 MG/2 ML SINGLE DOSE VIAL ONE (16:24)
[2017-06-08] MEDS ORDERED: fentaNYL CITRATE 250 MCG/5 ML VIAL ONE (16:24)
--- NOTE | 2017-06-08 17:09 | OP ---
Operative Note - Note: Operative Date: 06/08/17 Pre-Operative Diagnosis: Right kidney stones Operation: Right ESWL Findings: 7 mm lower pole kidney stone Post-Operative Diagnosis: Same as Pre-op Surgeon: Jarad Campuzano Anesthesia: Fractional Operative Report Dictated: Yes
[2017-06-08] MEDS ORDERED: ONDANSETRON 4 MG/2 ML VIAL ONE (18:10)
[2017-06-08 19:24] VITALS: BP 122/73; PULSE 8
--- NOTE | 2017-06-09 11:05 | OP ---
DATE OF OPERATION: 06/08/2017 PREOPERATIVE DIAGNOSIS: Right renal stone. POSTOPERATIVE DIAGNOSIS: Right renal stone. PROCEDURE: Right extracorporeal shock wave lithotripsy. ATTENDING: Raquel Martini MD ANESTHESIA: Fractional. DESCRIPTION OF OPERATION: Patient brought in the operating room, placed in supine position on the operating room table. Ultrasonography and fluoroscopy were performed. A 7-mm right lower pole stone was identified. At this point, preoperative antibiotics and fractional anesthesia were administered. Extracorporeal shock wave lithotripsy was then started; 2500 impulses at 18 joules of power were administered to the stone with excellent fragmentation under real-time ultrasonography and fluoroscopy noted. There were no complications. Disposition of patient was to recovery room. RAQUEL MARTINI M.D. [id number]
== END 2017-06-08 19:25 | disposition home or self-care (01) ==
LOC: JASU-SURG 14:17
PROVIDERS: ATTEND Urology
PROC: 0TF3XZZ Fragmentation in Right Kidney Pelvis, External Approach (ICD-10-PCS; principal; 2017-06-08 16:15)
DX: N20.0 Calculus of kidney (principal)

== ENCOUNTER 2017-07-06 08:34 | Day surgery (SDC) | payer OTHER ==
[2017-07-02 14:16] VITALS: BMI 39.6
--- NOTE | 2017-07-06 11:39 | OP ---
Operative Note - Note: Operative Date: 07/06/17 Pre-Operative Diagnosis: Left kidney stone Operation: Left ESWL Findings: 8 mm mid and 4 mm low poles left kidney stones Anesthesia: Fractional
[2017-07-06] MEDS ORDERED: oxyCODONE HCL 5 MG TABLET PO PRN (12:01)
[2017-07-06] MEDS ORDERED: ONDANSETRON 4 MG/2 ML VIAL IVPUSH PRN (12:01)
[2017-07-06] MEDS ORDERED: PROMETHAZINE HCL 25 MG/1 ML VIAL IVPUSH PRN (12:01)
[2017-07-06] MEDS ORDERED: LACTATED RINGERS SOLUTION 1,000 ML IV SCH (12:15)
[2017-07-06 12:29] VITALS: TEMP 98.7
[2017-07-06] MEDS ORDERED: ONDANSETRON 4 MG/2 ML VIAL IVPUSH ONE (13:40)
[2017-07-06] MEDS ORDERED: ONDANSETRON 4 MG/2 ML VIAL ONE (13:44)
[2017-07-06 15:03] VITALS: BP 117/62; PULSE 76
--- NOTE | 2017-07-06 21:10 | OP ---
DATE OF OPERATION: 07/06/2017 PREOPERATIVE DIAGNOSIS: Left kidney stone. POSTOPERATIVE DIAGNOSIS: Left kidney stone. PROCEDURE: Left extracorporeal shock wave lithotripsy. ATTENDING: Raquel Martini MD ANESTHESIA: Fractional. DESCRIPTION OF OPERATION: Patient was brought in the operating room, placed in supine position on the operating room table. Ultrasonography and fluoroscopy were performed. Two stones were noted. An 8-mm left mid-pole stone and a 4-mm left lower pole stone. Extracorporeal shock wave lithotripsy was then started once anesthesia was administered. It must be noted that Levaquin was given preoperatively for surgical prophylaxis. A total of 3000 impulses at 20 joules of power were given to both stones with excellent fragmentation noted on real-time ultrasonography and fluoroscopy. There were no complications. The patient tolerated the procedure very well. RAQUEL MARTINI M.D. /[id number]
== END 2017-07-06 14:40 | disposition home or self-care (01) ==
LOC: JASU-SURG 08:34
PROVIDERS: ATTEND Urology
PROC: 0TF4XZZ Fragmentation in Left Kidney Pelvis, External Approach (ICD-10-PCS; principal; 2017-07-06 11:00)
DX: N20.0 Calculus of kidney (principal)
CPT/HCPCS: 94760

== ENCOUNTER 2017-09-21 08:27 | Day surgery (SDC) | payer OTHER ==
[2017-09-18 09:50] VITALS: BMI 39.6
[2017-09-21] MEDS ORDERED: oxyCODONE HCL 5 MG TABLET PO PRN (11:17)
[2017-09-21] MEDS ORDERED: ONDANSETRON 4 MG/2 ML VIAL IVPUSH PRN (11:17)
[2017-09-21] MEDS ORDERED: LACTATED RINGERS SOLUTION 1,000 ML IV SCH (11:30)
[2017-09-21] MEDS ORDERED: MIDAZOLAM HCL 2 MG/2 ML SINGLE DOSE VIAL ONE (11:31)
[2017-09-21] MEDS ORDERED: DEXAMETHASONE SOD PHOSPHATE 4 MG/1 ML VIAL ONE (11:31)
[2017-09-21] MEDS ORDERED: PROPOFOL 20 ML ONE ×2 (11:31)
--- NOTE | 2017-09-21 13:23 | OP ---
Operative Note - Note: Operative Date: 09/21/17 Pre-Operative Diagnosis: bilateral urolithiasis with hydronephrosis s/p bilateral stent placement and ESWL Operation: cystoscopy/bilateral ureteral stent removal/right ureteroscopy Findings: bilateral hydronephrosis with right hydroureter Post-Operative Diagnosis: Other (bilateral hydronephrosis with right hydroureter ) Specimens Removed: bilateral ureteral stents Operative Report Dictated: Yes
[2017-09-21 13:31] VITALS: TEMP 98.4
[2017-09-21] MEDS ORDERED: ONDANSETRON 4 MG/2 ML VIAL ONE (13:45)
[2017-09-21 13:58] VITALS: PULSE 60
[2017-09-21 15:51] VITALS: BP 119/63
--- NOTE | 2017-09-21 20:39 | OP ---
DATE OF OPERATION: 09/21/2017 PREOPERATIVE DIAGNOSIS: Bilateral urolithiasis with hydronephrosis status post bilaterally renal stent placement and treatment of bilateral stones. POSTOPERATIVE DIAGNOSIS: Bilateral hydronephrosis with right sided hydroureter. PROCEDURE: Cystoscopy, bilateral ureteral stent removal, and right bilateral retrograde pyelogram and right ureteroscopy. ATTENDING SURGEON: Raquel Campuzano M.D. ANESTHESIA: General. DESCRIPTION OF PROCEDURE: The patient was brought in the operating room, placed in supine position on operating table. Anesthesia and preoperative antibiotics were administered. At this point, the patient was placed in dorsal lithotomy position, prepped and draped in the usual sterile manner. The patient has a history of bilateral ureteral obstruction requiring bilateral stents. The patient is currently presenting for removal of bilateral stents. Because of the patient's stone history, retrograde pyelograms are indicated in order to avoid recurrent ureteral obstruction. The patient understands and accepts the risks and benefits associated with the procedure. Cystoscopy is performed, and no evidence of stones are noted within the bladder. No evidence of neoplasm is noted. The bladder trauma is noted secondary to the ureteral stents. Both ureteral stents were removed with a grasping forceps. They are sent to pathology for evaluation. At this point, a right retrograde pyelogram is performed. A right hydronephrosis is noted. Ballooning of the mid ureter, consistent with a grade 4/5 hydroureter is noted. Ureteroscopy is performed, and there is no evidence of stones at the level of the pelvic brim. The ureteroscope is removed. There is no indication to replace the stent. The retrograde pyelogram performed on the left showed a hydronephrosis; however, there was adequate emptying of the ureter. No other obstruction was noted on the left. Patient tolerated procedure very well, no complications were noted. The disposition of the patient was to recovery room. RAQUEL MARTINI M.D. [id number]
--- NOTE | 2017-09-24 17:38 | PATH ---
Surgical Pathology Report Patient Name: TED MOSQUEDA Med. Rec. #: [id number] /Age/Gender: 1985 (Age: 31) / M Account: [id number] Location: [facility] Taken: 09/21/2017 Received: 09/21/2017 Reported: 09/24/2017 Physicians: Jarad Campuzano Specimen(s) Received URETERAL STENT FROM RIGHT AND LEFT URETER Clinical History Status post bilateral ureteral stent hydronephrosis Final Diagnosis URETERAL STENT FROM RIGHT AND LEFT,REMOVAL: SEGMENTS OF STENTS. GROSS EXAMINATION ONLY. Electronically Signed Yael Bush M.D. Gross Description Received fresh labeled "ureteral stent from right and left," are 2 yellow-green, coiled portions of tubing, consistent with ureteral stents. The stents average 34 cm in length. No soft tissue is present. No sections are submitted, gross only. /09/22/2017 saudi/09/22/2017
== END 2017-09-21 15:30 | disposition home or self-care (01) ==
LOC: JASU-SURG 08:27
PROVIDERS: ATTEND Urology
PROC: 0TP98DZ Removal of Intraluminal Device from Ureter, Via Natural or Artificial Opening Endoscopic (ICD-10-PCS; principal; 2017-09-21 10:00)
PROC: BT1DYZZ Fluoroscopy of Right Kidney, Ureter and Bladder using Other Contrast (ICD-10-PCS; 2017-09-21 10:00)
DX: N13.30 Unspecified hydronephrosis (principal); N13.4 Hydroureter
CPT/HCPCS: 76000-TC-FY; 88300-TC; 94760